=== PATIENT | male | born 1995 | race Caucasian/White ===

== ENCOUNTER 2018-07-28 01:45 | Emergency (ER) | payer SELFPAY ==
[~2018-07-28] VITALS: Ht 180.3 cm; Wt 68.0 kg
[2018-07-28] MEDS ORDERED: CLINDAMYCIN HC300 MG PO (01:52)
[2018-07-28] MEDS ORDERED: IBU800 MG PO (01:52)
[2018-10-04] MEDS ORDERED: CEPHALEXIN500 M1 PO (21:07)
== END 2018-07-28 02:15 | disposition home or self-care (01) ==
LOC: ED 01:45
DX: K02.9 Dental caries, unspecified (principal)

== ENCOUNTER 2020-10-04 10:27 | Emergency (ER) | payer OTHER ==
[~2020-10-04] VITALS: Ht 180.3 cm; Wt 63.5 kg
[~2020-10-04 10:27] MED LIST: CEPHALEXIN500 M1 PO; CLINDAMYCIN HC300 MG PO; IBU800 MG PO
== END 2020-10-04 11:34 | disposition left against medical advice (07) ==
LOC: ED 10:27
DX: J02.9 Acute pharyngitis, unspecified (principal); Z53.21 Procedure and treatment not carried out due to patient leaving prior to being seen by health care provider

== ENCOUNTER 2021-02-28 01:08 | Emergency (ER) | payer OTHER | END 2021-02-28 02:10 | disposition home or self-care (01) | LOC: ED 01:08 | DX: F41.9 Anxiety disorder, unspecified (principal); Z79.899 Other long term (current) drug therapy; Z79.2 Long term (current) use of antibiotics; Z96.22 Myringotomy tube(s) status ==